=== PATIENT | female | born 1960 | race Caucasian/White ===

== ENCOUNTER 2023-07-29 08:53 | Emergency (ER) | payer BC, SELFPAY ==
[2023-07-29 09:00] VITALS: BP 132/68
--- NOTE | 2023-07-29 10:46 | ED.GENMED ---
History of Present Illness
General
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
Source: patient
Exam Limitations: none
Time Seen by Provider: 07/29/23 09:33
Travel History
Have you had any contact with someone who has COVID-19?: No
Do you have any symptoms of coronavirus? Fever > 100 degrees, chills, cough, shortness of breath, sore throat, loss of taste or smell, muscle aches, or headache?: No
History of Present Illness
History of Present Illness:
Patient noted swelling in her vaginal area in the last 24 hours. No bleeding no pain no drainage no other complaints
Past History
Past History
ED Past Medical History: HTN
ED Past Surgical History: Other (Bladder repair, ectopic )
Social History
Tobacco: Non-smoker
Personal:
Phy Exam
Physical Exam
Physical Exam:
General: Nontoxic appearing in no distress
Skin: Warm and dry, no rash
Neuro: Alert, nontoxic, grossly nonfocal
Psychiatric: Good eye contact and appropriate
Abdomen: Soft and nontender
: Small vaginal prolapse. No bleeding no irritation no drainage no secondary infection
Course
Vital Signs
Initial and Last Documented VS:
Initial Vital Signs
Temp Pulse Resp BP Pulse Ox
98.0 F 92 18 132/68 98
07/29/23 09:00 07/29/23 09:00 07/29/23 09:00 07/29/23 09:00 07/29/23 09:00
Last Documented Vital Signs
Temp Pulse Resp BP Pulse Ox
98.0 F 88 16 130/64 98
07/29/23 09:00 07/29/23 11:08 07/29/23 11:08 07/29/23 11:08 07/29/23 11:08
*Pulse Oximetry
Patient hypoxic: no
*Critical Care Note
Total Time (30-74mins, 75-104mins- exclusive of procedures): Not Applicable
Update Note
Update Note:
Discussed with [employer] GRADE TEACHER. Will follow-up
ED Attending Note
-
Portions of this chart may have been created with voice recognition software.� Occasional wrong word or��sound alike� substitutions may have occurred due to the inherent limitations of voice recognition software.
Discharge Plan
Departure
Patient Disposition: Home (Routine Discharge)
Date of Disposition: 07/29/23
Time of Disposition: 10:47
Patient with high blood pressure during this ER visit?: Yes
Discharge Problem:
Vaginal prolapse
Instructions: Vaginal Prolapse, BLOOD PRESSURE
Prescriptions:
No Action
losartan 50 mg Tablet
50 mg PO DAILY
amlodipine 10 mg Tablet
10 mg PO DAILY
hydrochlorothiazide 25 mg Tablet
25 mg PO DAILY
Referrals:
Ruma Pat CRNP [Family Provider] -
Genny Burt MD [Active] - Next open appointment
Kwadwo Quijano MD [Active] - Next open appointment
Interventions
Interventions:
*Risk Screen - Suicide Last Done: 07/29/23 10:00
*General Assessment Last Done: 07/29/23 10:00
ED- Fall Risk Assessment Last Done: 07/29/23 10:00
*ED COVID-19 Vaccine History Last Done: 07/29/23 09:00
*Nursing Disposition Last Done: 07/29/23 11:08
ED-Female Genitourinary Assessment Last Done: 07/29/23 10:00
Discharge Date and Time
Discharge Date/Time: 07/29/23 11:09
Print Language: CHADIAN
[2023-07-29 11:08] VITALS: BP 130/64
== END 2023-07-29 11:09 | disposition home or self-care (01) ==
LOC: EMR 08:53
PROVIDERS: EMERGENCY PHYSICIAN Emergency Medicine; FAMILY PHYSICIAN Nurse Practitioner Family
DX: N81.10 Cystocele, unspecified (principal); I10 Essential (primary) hypertension
CPT/HCPCS: 99282

== ENCOUNTER 2024-02-15 06:33 | Day surgery (SDC) | payer BC, SELFPAY ==
[2024-02-07 08:27] VITALS: BMI 25.9
[2024-02-07 08:53] LABS: Hematocrit 36.9 % (37.0-47.0); Hemoglobin 13.1 g/dL (12.0-16.0); Mean Corp Hgb Conc. 35.5 g/dL (33.0-37.0); Mean Corpuscular Hgb 31.6 pg (27.0-31.0); Mean Corpuscular Volume 88.9 fL (81.0-99.0); Mean Platelet Volume 9.5 fL (7.4-10.4); Platelet Count 255 10^3/uL (130-400); Red Blood Cell Count 4.15 10^6/uL (4.20-5.40); Red Cell Dist. Width 12.6 % (11.5-14.5); White Blood Cell Count 5.7 10^3/uL (4.8-10.8)
[2024-02-07 09:22] LABS: Blood Urea Nitrogen 10 mg/dl (7-17); Calcium 9.1 mg/dl (8.4-10.2); Carbon Dioxide 22 mmol/L (22-30); Chloride 96 mmol/L (98-107); Estimated Creatinine Clearance 76 ml/min; Glucose 76 mg/dl (70-99); Potassium 3.8 mmol/L (3.5-5.1); Sodium 136 mmol/L (135-145); eGFR > 60.00
[2024-02-15] VITALS (13 sets, daily range): BP systolic 115–183; BP diastolic 54–82; BMI 25.9
[2024-02-15] MEDS: Pyridium 200 MG PO (09:46)
[2024-02-15] MEDS: HEPARIN 5000 UNITS SC (09:46)
--- NOTE | 2024-02-15 14:30 | OR.RPT ---
Operative Report
Operative Report
PREOPERATIVE DIAGNOSIS:
1. Pelvic organ prolapse (uterine, anterior, posterior)
POSTOPERATIVE DIAGNOSIS:
1. Pelvic organ prolapse (uterine, anterior, posterior)
PROCEDURE:
1. Robotic assisted laparoscopic supracervical hysterectomy and bilateral salpingo-oophrectomy
2. Robotic assisted laparoscopic sacrocolpopexy
3. Posterior colporrhaphy with perineoplasty
4. Cystoscopy
ASSISTANTS: MITESH Lantigua
EBL: 100 cc
COMPLICATIONS: None
SPECIMENS: Uterus, bilateral ovaries and tubes
INDICATIONS: Patient has symptomatic pelvic organ prolapse. Options were reviewed with the patient, who decided to proceed with surgery.� Preoperative urodynamics revealed stress urinary incontinence with urethral hypermobility.� The risks of
surgery were reviewed, including the risk of bleeding, infection, damage to surrounding organs including bowel, bladder, ureter, urethra, nerves, blood vessels, mesh complications, post-operative urinary retention and urinary incontinence. The risk
of anesthesia was also reviewed.� The patient expressed understanding and informed consent was obtained.
FINDINGS: Laparoscopic findings include adnexa were within normal limits bilaterally. Cystoscopic findings include normal bladder mucosa, no cystotomy, suture, mesh, lacerations or lesions.� Normal efflux of urine from bilateral ureteral openings.
Normal urethra.
DESCRIPTION OF PROCEDURE:
On day of surgery, patient properly identified in preoperative waiting area and informed consent of planned procedure again reviewed.� She was then taken to the operating room.� Sequential compression devices were placed on bilateral lower
extremities and 5,000 units of subcutaneous heparin were given for DVT prophylaxis.� General anesthesia was induced without difficulty.�� Ancef 2 grams and Flagyl 500 mg IV were given for antibiotic prophylaxis.� The patient was placed in dorsal
lithotomy position with Davin stirrups and prepped and draped in the usual sterile fashion.� Surgical time-out was performed to review patient and procedure.
Attention was turned to the patient�s vagina.� Rider catheter was placed to gravity. The vaginal manipulator was placed.�
Attention turned to the patient�s abdomen.� The patient was confirmed to have an OG tube in place on suction for gastric decompression.� A midline 8 mm transverse midline supraumbilical incision was made with the scalpel approximately 20 cm above
the symphysis.� The Veress needle was passed through this incision while tenting up the abdominal wall.� Intraperitoneal placement was confirmed by opening insufflation pressure of 0 mmHg.� The abdomen was insufflated to a pressure of 12 mmHg with
approximately 3L CO2 gas to obtain adequate pneumoperitoneum.� A 8 mm robotic trocar was advanced through this incision and abdominal entry confirmed.� No injuries noted.� Next, the remaining port sites were marked, injected superficially with local
anesthetic, and skin incised with the scalpel.� These sites included two 8 mm robotic ports on the patient's left and one 8mm robotic and one 8 mm accessory port on the patient's right.� All ports were placed under direct visualization without
difficulty.� The monopolar scissors were used to remove adheisons of the bowel from the anterior abdominal wall. The patient was placed in [place] position and abdomen and pelvis inspected and noted to be free of significant adhesive disease.�
The robot was docked using the left side-docking technique.� The robotic arms were attached to the ports and instruments placed without difficulty.�
The robotic assisted laparoscopic supracervical hysterectomy and bilateral salpingo-oophrectomy were performed as follows.� Starting at the patient�s left, the round ligament, uteroovarian pedicle, and fallopian tube were cauterized with bipolar
cautery, and then transected with monopolar scissors.� The anterior leaf of the broad ligament was opened, and the dissection was carried inferiorly and anterior around the cervix to create the bladder flap.� This process was repeated on the right
in a similar fashion.� The vesico-uterine peritoneum was further opened and the bladder dissected down off the anterior cervix and vagina with sharp and blunt dissection.� Returning to the left, the posterior leaf of the broad ligament was dissected
laterally down the side of the uterus.� The uterine arteries were skeletonized, cauterized, and transected.� Further sequential bites were taken down the side of the uterus to reach the level of the internal cervical os.� This process was repeated
on the right.� The bladder was further dissected anteriorly off the vagina.� The uterus was amputated, #0 Vicryl marking stitch placed and the uterus set aside in the upper abdomen for later removal.� The cervical stump and os were cauterized and
the cervix closed with a figure of eight of #0 Vicryl.� Attention was turned to the patient�s adnexa and the bilateral salpingo-oophrectomy was performed as follows.� The left IP ligament was identified and isolated with the ureter noted well below
the level of planned dissection.� The IP ligament was cauterized with bipolar electrocautery and transected with monopolar scissors.� The left tube and ovary were then dissected free in sequential bites and then placed into an Endobag with the
uterus.� The same procedure was done for the patient�s right tube and ovary.� Hemostasis was maintained
The robotic assisted laparoscopic abdominal sacrocolpopexy was performed as follows:� The bladder was dissected anteriorly off the vagina to allow for mesh placement.� An EEA sizer was placed gently into the rectum to help distinguish the
rectovaginal perineum reflection.� The posterior peritoneum was entered sharply and the rectum dissected posteriorly off the vagina.� The posterior peritoneum was continued to be opened through the cul-de-sac.� Next the sacrum was exposed after
retracting bowel gently away.� The peritoneum overlying the sacral was tented up and entered sharply.� The presacral space area was opened op and dissection carried down to expose and clear off the anterior longitudinal ligament at the level of the
sacrum.� This peritoneum incision was carried inferiorly to join the peritoneal incision of the posterior cul-de-sac.� Hemostasis was noted.��� The polypropylene Y mesh was introduced through the accessory port and positioned over the cervix.� The
anterior arm of the Y mesh was sutured to the anterior cervix and vagina with approximately 8 #2-0 Gortex sutures.� The posterior arm of the Y mesh was sutured to the posterior cervix and vagina with 8 #2-0 Gortex sutures.� The tail of the Y mesh
was attached to the anterior longitudinal ligament at the level of the sacrum with 1 #2-0 Gortex sutures.� Additionally sutures were unable to be passed. There was only osteum and no significant ligament was available to attach the mesh. Additional
dissection of the ligament to the midline was complete. A 5 mm laparoscopic trochar was placed in the suprapubic region. The Capusure device was intruced and a tac was placed medially to the prior suture. Additional tacs did not successfully deploy
into the ligament and 2 tacs were removed from the abdomen. Next, an additional #2-0 Gortex was placed superiorly to the tac. The vagina was noted to be elevated but not under tension.� Hemostasis was noted.� The excess mesh was trimmed and
removed.�Floseal was used in the presacral space to ensure adequate hemostasis. The peritoneum was reapproximated to cover the mesh.� The pelvis was reexamined and hemostasis was noted throughout.�
The robot was undocked.� The uterus and adnexa were removed from the abdomen.� The accessory port fascial incision was closed using the Jude-Mensah closure device with #0-Vicryl under direct visualization.� CO2 was released and ports removed
under direct visualization.� Skin was closed with 4-0 Biosyn for the subcuticular layer.� All abdominal incisions were then closed with skin glue.�
The posterior repair and perineorrhaphy was performed as follows: The posterior vaginal mucosa and perineum skin were infiltrated with 1% lidocaine with 1:100,000 epinephrine. A triangular area of perineum skin was removed using a scalpel.� The
posterior vaginal mucosa was then opened up in the midline, going from the introitus toward the apex using Metzenbaum scissors.� The posterior vaginal mucosa was then dissected off the underlying rectovaginal fascia bilaterally out to the level of
the lateral sulci.� The apical edge of the rectovaginal fascia was identified and used plicate in the midline with interrupted stitches of #2-0 PDS.� Interrupted suture of #2-0 PDS were also used to plicate the transverse peritoneal and
bulbospongiosus muscles in the midline to reconstruct the perineal body.� Excess vaginal mucosa was trimmed.� The vaginal mucosa and perineum skin were reapproximated with 2-0 Vicryl in a running continuous fashion.� Rectal exam revealed no
stitches.�
Anesthesia was reversed without difficulty.� The patient tolerated the procedure well, was awakened and sent to the PACU in stable condition. All counts were correct x 2. I, Dr. Quijano was scrubbed and present throughout the procedure
[2024-02-15] MEDS: MOTRIN 600 MG PO (16:04)
== END 2024-02-15 16:40 | disposition home or self-care (01) ==
LOC: SDS 06:33
PROVIDERS: ATTENDING PHYSICIAN Obstetrics & Gynecology; FAMILY PHYSICIAN Nurse Practitioner Family
DX: N81.4 Uterovaginal prolapse, unspecified (principal); N39.3 Stress incontinence (female) (male); N36.41 Hypermobility of urethra
CPT/HCPCS: 57425; 57250; 58542; 88305; 36415; 80048; 85027; 86850; 86900; 86901; 93005; C1763

== ENCOUNTER → 2024-03-02 10:22 | Outpatient (REF) | payer BC, SELFPAY ==
[2024-03-02 17:23] LABS: Urine Albumin Trace (Neg - Trace); Urine Bilirubin Negative (Negative); Urine Character Clear (Clear); Urine Color Yellow; Urine Glucose Negative (Negative); Urine Ketone Negative (Negative); Urine Leukocyte Trace (Negative); Urine Nitrite Negative (Negative); Urine Occult Blood Negative (Negative); Urine Urobilinogen Negative (Neg - 1+)
[2024-03-02 17:41] LABS: Urine Mucus Many; Urine Red Blood Cell 0-2 /HPF (0-2); Urine Squamous Cell 0-2 /LPF (Few)
[2024-03-02 17:43] LABS: Urine Bacteria Moderate (Negative)
== END ==
LOC: CLAB 10:22
PROVIDERS: ATTENDING PHYSICIAN Physician Assistant
DX: N39.0 Urinary tract infection, site not specified (principal)
CPT/HCPCS: 81003; 81015; 87086

== ENCOUNTER → 2024-07-28 15:56 | Outpatient (REF) | payer BC, SELFPAY ==
[2024-07-28 16:34] LABS: Urine Albumin Negative (Neg - Trace); Urine Bilirubin Negative (Negative); Urine Character Clear (Clear); Urine Color Yellow; Urine Glucose Negative (Negative); Urine Ketone Negative (Negative); Urine Leukocyte 3+ (Negative); Urine Nitrite Positive (Negative); Urine Occult Blood Negative (Negative); Urine Urobilinogen Negative (Neg - 1+); Urine pH 6.5 (5.0-9.0)
[2024-07-28 16:58] LABS: Urine Red Blood Cell 0-2 /HPF (0-2); Urine White Cell 26-30 /HPF (0-5)
[2024-07-28 16:59] LABS: Urine Bacteria Moderate (Negative)
== END ==
LOC: REG 15:56
PROVIDERS: ATTENDING PHYSICIAN Nurse Practitioner Family
DX: R32 Unspecified urinary incontinence (principal); R41.0 Disorientation, unspecified
CPT/HCPCS: 81003; 81015; 87077; 87086; 87186

== ENCOUNTER → 2024-08-17 11:46 | Outpatient (REF) | payer BC, SELFPAY ==
[2024-08-17 12:54] LABS: % Basophils 0.7 % (0-2); % Eosinophils 3.7 % (0-6); % Immature Granulocytes 0.1 % (0-0.5); % Lymphocytes 17.7 % (20.5-51.1); % Monocytes 7.2 % (1.7-9.3); % Neutrophils 70.6 % (42.2-75.2); Absolute Basophils 0.1 10^3/uL (0-0.2); Absolute Eosinophils 0.3 10^3/uL (0-0.7); Absolute Lymphocytes 1.3 10^3/uL (1.2-3.4); Absolute Monocytes 0.5 10^3/uL (0.1-0.6); Hemoglobin 11.7 g/dL (12.0-16.0); Mean Corp Hgb Conc. 33.4 g/dL (33.0-37.0); Mean Corpuscular Hgb 29.2 pg (27.0-31.0); Mean Corpuscular Volume 87.3 fL (81.0-99.0); Mean Platelet Volume 9.5 fL (7.4-10.4); Nucleated Red Blood Cells % 0 %; Platelet Count 326 10^3/uL (130-400); Red Blood Cell Count 4.01 10^6/uL (4.20-5.40); White Blood Cell Count 7.1 10^3/uL (4.8-10.8)
[2024-08-17 13:28] LABS: ALT (SGPT) 13 U/L (0-35); AST (SGOT) 19 U/L (14-36); Albumin 4.3 g/dl (3.5-5.0); Alkaline Phosphatase 73 U/L (38-126); Blood Urea Nitrogen 5 mg/dl (7-17); Calcium 10.1 mg/dl (8.4-10.2); Carbon Dioxide 30 mmol/L (22-30); Chloride 99 mmol/L (98-107); Glucose 117 mg/dl (70-99); HDL Cholesterol 50 mg/dl; LDL Cholesterol, Calculated 109 mg/dl; Potassium 4.4 mmol/L (3.5-5.1); Sodium 136 mmol/L (135-145); Total Bilirubin 0.8 mg/dl (0.2-1.3); Total Cholesterol 180 mg/dl (50-199); Total Protein 7.2 g/dl (6.3-8.2); Triglyceride 105 mg/dl (10-149); Very Low Density Lipoprotein 21 mg/dl (0-30); eGFR > 60.00
[2024-08-17 13:57] LABS: TSH Reflex To Free T4 0.98 uIU/ml (0.47-4.68)
== END ==
LOC: REG 11:46
PROVIDERS: ATTENDING PHYSICIAN Nurse Practitioner Family
DX: R79.89 Other specified abnormal findings of blood chemistry (principal); D64.9 Anemia, unspecified; Z00.00 Encounter for general adult medical examination without abnormal findings
CPT/HCPCS: 36415; 80053; 80061; 84443; 85025

== ENCOUNTER → 2024-09-05 08:56 | Outpatient (REF) | payer BC, SELFPAY | LOC: RST 08:56 | PROVIDERS: ATTENDING PHYSICIAN Internal Medicine Gastroenterology; FAMILY PHYSICIAN Nurse Practitioner Family | DX: R13.19 Other dysphagia (principal) | CPT/HCPCS: 74230; 92611 ==

== ENCOUNTER → 2024-09-12 14:00 | Outpatient (REF) | payer BC, SELFPAY | LOC: RAD 14:00 | PROVIDERS: ATTENDING PHYSICIAN Urology; FAMILY PHYSICIAN Nurse Practitioner Family | DX: N39.0 Urinary tract infection, site not specified (principal) | CPT/HCPCS: 74176 ==

== ENCOUNTER 2024-10-10 06:12 | Day surgery (SDC) | payer BC, SELFPAY ==
[2024-10-10 13:41] VITALS: BMI 20.5
[2024-10-10 13:51] VITALS: BMI 20.5
[2024-10-10 13:53] VITALS: BP 134/68
[2024-10-10 15:13] VITALS: BP 137/68
[2024-10-10 15:15] VITALS: BP 129/74
[2024-10-10 15:30] VITALS: BP 145/67
[2024-10-10 15:45] VITALS: BP 138/89
== END 2024-10-10 16:05 | disposition home or self-care (01) ==
LOC: SDS 06:12
PROVIDERS: ATTENDING PHYSICIAN Internal Medicine Gastroenterology
DX: Z43.1 Encounter for attention to gastrostomy (principal); K22.89 Other specified disease of esophagus; K44.9 Diaphragmatic hernia without obstruction or gangrene
CPT/HCPCS: 43247

== ENCOUNTER → 2024-10-12 14:35 | Outpatient (REF) | payer BC, SELFPAY ==
[2024-10-12 15:35] LABS: Urine Character Slightly Cloudy (Clear)
[2024-10-12 16:12] LABS: Urine Squamous Cell 0-2 /LPF (Few)
[2024-10-12 16:13] LABS: Urine White Cell 40-50 /HPF (0-5)
== END ==
LOC: REG 14:35
PROVIDERS: ATTENDING PHYSICIAN Nurse Practitioner Family
DX: R30.0 Dysuria (principal)
CPT/HCPCS: 81003; 81015; 87077; 87086; 87186

== ENCOUNTER 2024-11-01 18:27 | Emergency (ER) | payer BC, SELFPAY ==
[2024-11-01 18:28] VITALS: BP 161/90
[2024-11-01 18:53] LABS: Hematocrit 34.2 % (37.0-47.0); Hemoglobin 11.3 g/dL (12.0-16.0); Mean Corp Hgb Conc. 33.0 g/dL (33.0-37.0); Mean Corpuscular Volume 85.3 fL (81.0-99.0); Nucleated Red Blood Cells % 0 %; Platelet Count 224 10^3/uL (130-400); Red Cell Dist. Width 14.2 % (11.5-14.5)
[2024-11-01 19:09] LABS: ALT (SGPT) 11 U/L (0-35); AST (SGOT) 16 U/L (14-36); Albumin 4.3 g/dl (3.5-5.0); Alkaline Phosphatase 60 U/L (38-126); Blood Urea Nitrogen 10 mg/dl (7-17); Calcium 9.2 mg/dl (8.4-10.2); Carbon Dioxide 25 mmol/L (22-30); Chloride 101 mmol/L (98-107); Glucose 99 mg/dl (70-99); Potassium 4.2 mmol/L (3.5-5.1); Sodium 135 mmol/L (135-145); Total Protein 6.7 g/dl (6.3-8.2); eGFR > 60.00
[2024-11-01 21:53] VITALS: BMI 21.1
[2024-11-01 22:00] VITALS: BP 139/81
--- NOTE | 2024-11-01 22:30 | ED.GENMED ---
History of Present Illness
General
Chief Complaint: Blood Pressure Problem
Source: patient and spouse
Exam Limitations: none
Time Seen by Provider: 11/01/24 22:17
Nursing documentation reviewed up to this point in time: agreed with
History of Present Illness
History of Present Illness:
Note:
CHIEF COMPLAINT(S)
Concerns about elevated blood pressure.
HISTORY OF PRESENT ILLNESS
The patient is a 64-year-old female with a history of stroke in April. She is concerned about her blood pressure management, especially since she plans to go on vacation soon. She reports that her blood pressure had been low, leading to the
cessation of one of her medications, Enalapril. After this adjustment, her blood pressure was stable for several weeks. However, in the past week, it has been rising closer to medication time and sometimes does not decrease significantly after
medication. The patient denies feeling unwell but mentions having had a mild headache earlier today while out running errands. She attributes some of her symptoms, like worsening blood pressure, to possible medication issues and is frustrated with
her current management. She also has persistent left-sided weakness and visual problems following the stroke.
She reports a dislocation of her shoulder during a recent trip due to weak shoulder muscles. This issue has been described as a subluxation. The patient has been undergoing physical therapy post-stroke.
The patient is currently awaiting a cardiology appointment to better manage her hypertension but has faced delays in scheduling. She mentioned having an appointment with a different primary care physician in January. Additionally, she is dealing
with ongoing urological issues and has had multiple urinary tract infections since her stroke. She expresses concern about possibly not emptying her bladder fully.
ADDITIONAL HISTORY OBTAINED FROM SOURCES OTHER THAN THE PATIENT
The spouse mentioned concerns regarding the patients blood pressure management post-stroke and current medication regimen. The spouse expressed frustration with the healthcare system in coordinating proper long-term management for the patient.
CHRONIC MEDICAL CONDITIONS SIGNIFICANTLY AFFECTING CARE
The patient has a history of hypertension and a recent stroke.
REVIEW OF SYSTEMS
- Cardiovascular: Concerns about elevated blood pressure.
- Neurological: History of stroke with persistent left-sided weakness and visual problems.
- Musculoskeletal: Reports shoulder subluxation due to weak muscles.
- Urological: Ongoing issues with urinary tract infections and possible incomplete bladder emptying.
- Constitutional: Reports of mild headache without acute distress.
PHYSICAL EXAM
General: Alert, no acute distress.
Skin: Warm, dry.
Head: Normocephalic, atraumatic.
Neck: Supple, trachea midline.
Eye Ears, nose, mouth, and throat: Oral mucosa moist.
Cardiovascular: Normal peripheral perfusion, no edema.
Respiratory: Respirations are non-labored.
Gastrointestinal: Abdomen nondistended.
Back: Normal range of motion, Normal alignment.
Musculoskeletal: Normal range of motion, diminished strength in the left arm.
Neurological: Alert and oriented to person, place, time, and situation. Left-sided weakness observed.
Psychiatric: Cooperative, appropriate mood & affect.
PLAN
- Proceed with a CT scan of the head to rule out any complications associated with recent headaches.
- No immediate adjustments to hypertensive treatment in the emergency department; awaiting cardiology evaluation.
- Monitor for any new or worsening symptoms, particularly those indicative of uncontrolled hypertension.
DIFFERENTIAL DIAGNOSIS
The Differential Diagnosis includes, in no particular order and is not limited to:
1. Medication-induced hypertension
2. Primary hypertension
3. Stress-related blood pressure elevation
4. Urinary tract infection
5. Secondary hypertension due to renal artery stenosis
6. Intracranial lesions or sequelae from the previous stroke
7. Medication non-compliance
8. White coat hypertension
9. Neurological sequelae from prior stroke
10. Subclinical urinary retention leading to autonomic dysregulation
EKG
My independent EKG interpretation is:
- Time of EKG: Not specified
- Rhythm: Normal sinus rhythm
- Heart Rate: 66 bpm (stress rate)
- WI Interval: Normal
- QRS Duration: Normal
- QT Interval: Normal
- Heber: Left axis deviation
- Abnormalities: No signs of ischemia
CARE-UPDATE
11/01/24 - 23:45
The patients blood pressure remains stable, and the CT head shows no acute findings. Discharge planning will proceed with follow-up care arranged with primary care and cardiology. Current blood pressure medications will be continued as there is no
indication for changes. The patient reports no new symptoms.
CARE-UPDATE
11/02/24 - 00:23
The patients condition remains stable with no acute weakness or signs of a new cerebrovascular accident (CVA). Headache and hypertension are noted as the primary diagnoses. The patient is to follow up with their primary care provider and cardiology.
Ensure compliance with hypertension management and monitor for any changes in symptoms.
Disposition:
SUMMARY OF ENCOUNTER
The patient, a 64-year-old female with a history of stroke, was seen in the emergency department due to concerns about elevated blood pressure and a recent mild headache. She is awaiting a cardiology appointment for better hypertension management.
The patients blood pressure is noted to increase close to her medication times and not significantly decrease afterward. No medication adjustments were made during this visit, pending cardiology evaluation. A CT scan of the head was conducted to
rule out complications from her headache, with results showing no acute findings.
DISPOSITION
Discharge home.
ASSESSMENT
Headache and hypertension.
PLAN
The patients hypertension management will continue as is until cardiology evaluation. She should monitor for any new or worsening symptoms related to her blood pressure. No immediate changes are indicated based on her current presentation and test
results.
INDEPENDENT REVIEW OF LABS AND INTERPRETATION OF TESTS
- My independent CT head interpretation shows no acute findings.
- My independent EKG interpretation is: normal sinus rhythm, heart rate 66 bpm, left axis deviation, with no signs of ischemia.
FOLLOW-UP INSTRUCTIONS
The patient is to follow up with their primary care provider and tactical/mobile watch officer. Ensure compliance with hypertension management and monitor for any changes in symptoms.
MEDICAL DECISION MAKING
- Number and Complexity of Problems Addressed: Chronic conditions affecting care include history of hypertension and recent stroke. Differential diagnosis considered includes medication-induced hypertension, primary hypertension, stress-related
blood pressure elevation, urinary tract infection, secondary hypertension due to renal artery stenosis, intracranial lesions or sequelae from previous stroke, medication non-compliance, white coat hypertension, neurological sequelae from prior
stroke, subclinical urinary retention leading to autonomic dysregulation.
- Data:
Category 1: My independent interpretation of the CT head and EKG as described.
Category 2: Input from independent historian obtained from the patients spouse regarding blood pressure management concerns.
Category 3: None discussed.
- Risk: Consideration of Admission/Observation: Escalation of care including admission/observation was considered given the complexity and risk of the patients presenting complaint and underlying comorbidities. However, ultimately, I feel the
patient is safe for outpatient management with close follow-up. Reasoning: Work-up reassuring, does not reveal any acute life/organ threatening processes, patients symptoms well-controlled upon reevaluation, reexamination is reassuring, vitals are
stable, patient agreeable with discharge, reliable for follow-up.
DIAGNOSIS
- Headache (ICD-10: R51)
- Hypertension (ICD-10: I10)
Past History
Past History
ED Past Medical History: HTN
ED Past Surgical History: Other (Bladder repair, ectopic )
Social History
Tobacco: Non-smoker
Personal:
Phy Exam
Physical Exam
Physical Exam:
.
Course
Orders/Labs/Results
Orders:
Orders
11/01/24 18:33
Electrocardiogram (*1) Urgent
Reason for Study: Hypertension, Benign
EKG- Treatment ONCE
11/01/24 18:44
Complete Blood Count/With Diff Urgent
Comprehensive Metabolic Panel Urgent
11/01/24 20:49
CT Head W/o Iv Contrast Urgent
Comment:
Reason For Exam: high blood pressure/headache
Abnormal Lab Results
11/01/24
18:44
RBC 4.01 L 10^6/uL
(4.20-5.40)
Hgb 11.3 L g/dL
(12.0-16.0)
Hct 34.2 L %
(37.0-47.0)
Creatinine 0.5 L mg/dL
(0.6-1.0)
Total Bilirubin 1.4 H mg/dl
(0.2-1.3)
11/01/24 18:44
11/01/24 18:44
Vital Signs
Initial and Last Documented VS:
Initial Vital Signs
Temp Pulse Resp BP Pulse Ox
98.5 F 63 16 161/90 98
11/01/24 18:28 11/01/24 18:28 11/01/24 18:28 11/01/24 18:28 11/01/24 18:28
Last Documented Vital Signs
Temp Pulse Resp BP Pulse Ox
98.5 F 66 16 158/82 97
11/01/24 18:28 11/02/24 00:00 11/02/24 00:00 11/02/24 00:00 11/02/24 00:00
*Pulse Oximetry
SaO2: 95
Oxygen Mode of Delivery: Room air
Patient hypoxic: no
*Critical Care Note
Total Time (30-74mins, 75-104mins- exclusive of procedures): Not Applicable
ED Attending Note
-
Portions of this chart may have been created with voice recognition software.� Occasional wrong word or��sound alike� substitutions may have occurred due to the inherent limitations of voice recognition software.
Discharge Plan
Departure
Patient Disposition: Home (Routine Discharge)
Date of Disposition: 11/02/24
Time of Disposition: 00:18
Patient with high blood pressure during this ER visit?: Yes
Condition: Good
Discharge Problem:
Headache
Instructions: Headaches in adults, BLOOD PRESSURE
Prescriptions:
No Action
losartan 50 mg Tablet
50 mg PO DAILY
carvedilol 25 mg Tablet
25 mg PO BID
calcium carbonate 500 mg calcium (1,250 mg) Capsule
500 mg PO TID
olanzapine 2.5 mg Tablet
2.5 mg PO HS
famotidine [Pepcid] 20 mg Tablet
20 mg PO HS
tamsulosin 0.4 mg Capsule
0.4 mg PO HS
estradiol 0.01 % (0.1 mg/gram) Cream
1 appful VAGINAL .3X'S WEEKLY
Ellura
36 mg PO DAILY
Referrals:
Micki Montoya CRNP [Family Provider, Internal Medicine] - Call in 1-3 days for appt
Interventions
Interventions:
*Risk Screen - Suicide Last Done: 11/01/24 18:28
*General Assessment Last Done: 11/01/24 21:53
*Neglect/Abuse Screening Last Done: 11/01/24 18:28
*ED- Fall Risk Assessment Last Done: 11/01/24 21:53
*ED COVID-19 Vaccine History Last Done: 11/01/24 21:53
ED- Cardiac Assessment Last Done: 11/01/24 21:53
ED- Neurological Assessment Last Done: 11/01/24 21:53
ED- Pulmonary Assessment Last Done: 11/01/24 21:53
Discharge Date and Time
Print Language: STATELESS
[2024-11-01 23:48] VITALS: BP 167/78
[2024-11-02] VITALS: BP 158/82
== END 2024-11-02 00:28 | disposition home or self-care (01) ==
LOC: EMR 18:27
PROVIDERS: Emergency Medicine; EMERGENCY PHYSICIAN Emergency Medicine; FAMILY PHYSICIAN Nurse Practitioner Family
DX: R51.9 Headache, unspecified (principal); I10 Essential (primary) hypertension; Z86.73 Personal history of transient ischemic attack (TIA), and cerebral infarction without residual deficits
CPT/HCPCS: 99284; 70450; 80053; 85025; 93005

== ENCOUNTER → 2024-11-18 11:17 | Outpatient (REF) | payer BC, SELFPAY ==
[2024-11-18 12:17] LABS: Hematocrit 36.0 % (37.0-47.0); Hemoglobin 12.2 g/dL (12.0-16.0); Mean Corp Hgb Conc. 33.9 g/dL (33.0-37.0); Mean Corpuscular Volume 85.3 fL (81.0-99.0); Nucleated Red Blood Cells % 0 %; Platelet Count 296 10^3/uL (130-400); Red Cell Dist. Width 14.2 % (11.5-14.5)
[2024-11-18 12:45] LABS: ALT (SGPT) 12 U/L (0-35); AST (SGOT) 16 U/L (14-36); Albumin 4.6 g/dl (3.5-5.0); Alkaline Phosphatase 54 U/L (38-126); Blood Urea Nitrogen 8 mg/dl (7-17); Calcium 10.3 mg/dl (8.4-10.2); Carbon Dioxide 26 mmol/L (22-30); Chloride 99 mmol/L (98-107); Glucose 110 mg/dl (70-99); Potassium 4.6 mmol/L (3.5-5.1); Sodium 132 mmol/L (135-145); Total Protein 7.2 g/dl (6.3-8.2); eGFR > 60.00
[2024-11-18 13:53] LABS: Folate 8.7 ng/ml (2.76-20); Vitamin B12 257 pg/ml (239-931)
== END ==
LOC: REG 11:17
PROVIDERS: ATTENDING PHYSICIAN Nurse Practitioner Adult Health
DX: R41.82 Altered mental status, unspecified (principal)
CPT/HCPCS: 36415; 80053; 82607; 82746; 84443; 85025

== ENCOUNTER → 2024-12-09 10:00 | Outpatient (REF) | payer BC, SELFPAY ==
[2024-12-09 11:13] LABS: ALT (SGPT) 12 U/L (0-35); AST (SGOT) 16 U/L (14-36); Albumin 4.5 g/dl (3.5-5.0); Alkaline Phosphatase 53 U/L (38-126); Blood Urea Nitrogen 8 mg/dl (7-17); Calcium 10.0 mg/dl (8.4-10.2); Carbon Dioxide 29 mmol/L (22-30); Chloride 93 mmol/L (98-107); Glucose 126 mg/dl (70-99); Potassium 4.6 mmol/L (3.5-5.1); Sodium 129 mmol/L (135-145); Total Protein 7.3 g/dl (6.3-8.2); eGFR > 60.00
== END ==
LOC: REG 10:00
PROVIDERS: ATTENDING PHYSICIAN Nurse Practitioner Adult Health; FAMILY PHYSICIAN Nurse Practitioner Family
DX: E87.1 Hypo-osmolality and hyponatremia (principal)
CPT/HCPCS: 36415; 80053